=== PATIENT | male | born 1980 | race Caucasian/White ===

== ENCOUNTER 2020-01-13 07:15 | Emergency (ER) | payer MEDICAID ==
[~2020-01-13] VITALS: Ht 177.8 cm; Wt 78.0 kg
--- NOTE | 2020-01-13 07:29 | NUR ---
PT BIB EMS FROM [facility], PT WITH C/O STEAK IN ESOPHAGUS, UNABLE TO PASS. PT WITH NO RESP DISTRESS ON ARRIVAL, VSS. GI PAGED PT TO BP, CARD MONITOR, BP.
--- NOTE | 2020-01-13 08:33 | NUR ---
PT RESTING AT THIS TIME ON [facility], AWAITING GI FOR EGD. VSS. NAD NOTED
--- NOTE | 2020-01-13 10:22 | NUR ---
PT TO ALL MONITORING EQUIP. ETCO2, SPO2, CARD MONITOR, BP. AWAITING GI FOR EGD. VSS
[2020-01-13] MEDS ORDERED: PROPOFOL 10 MG/ML, 20ML ONE ×2 (10:39→11:11)
[2020-01-13] MEDS ORDERED: PROPOFOL 10 MG/ML, 20ML IVPush ONE (11:00)
--- NOTE | 2020-01-13 11:25 | NUR ---
EGD COMPLETED BY DR VELEZ. SEE CHART FOR PROCEDURE NOTES. PT TOLERATED PROCEDURE WELL
[2020-01-13 11:27] VITALS: BP 126/79
== END 2020-01-13 12:23 | disposition home or self-care (01) ==
LOC: ED 10:14
DX: T18.128A Food in esophagus causing other injury, initial encounter (principal); X58.XXXA Exposure to other specified factors, initial encounter; Y93.89 Activity, other specified; Y92.89 Other specified places as the place of occurrence of the external cause; Y99.8 Other external cause status
CPT/HCPCS: 99285